=== PATIENT | male | born 1960 | race Caucasian/White ===

== ENCOUNTER 2018-09-03 06:06 | Day surgery (SDC) | payer OTHER ==
[2018-09-03] MEDS: CYCLOPENTOLATE 2% 2 ML OPH OPER (06:56)
[2018-09-03] MEDS: PHENYLephrine 10% 5 ML OPH OPER (06:56)
[2018-09-03] MEDS: MOXIFLOXACIN 0.5% 3 ML OPH OPER (06:56)
[2018-09-03] MEDS: LIDOCAINE 1% (MPF) 10 ML INJ (06:57)
[2018-09-03] MEDS ORDERED: TETRACAINE 0.5% 4 ML OPH (06:57)
[2018-09-03] MEDS ORDERED: BUPIVACAINE 0.75% (MPF) 10 ML INJ (06:57)
[2018-09-03] MEDS: NEPAFENAC 0.1% 3 ML OPH OPER (06:57)
[2018-09-03] MEDS ORDERED: MOXIFLOXACIN 0.5% 3 ML OPH (06:57)
[2018-09-03] MEDS ORDERED: NA BICARBONATE 8.4% 50 ML SYG (06:58)
[2018-09-03] MEDS ORDERED: EPINEPHrine 1 MG INJ (07:08)
[2018-09-03] MEDS ORDERED: PROPOFOL 20 ML (07:28)
[2018-09-03] MEDS ORDERED: LIDOCAINE 2% (SDV) 5 ML INJ (07:28)
[2018-09-03] MEDS ORDERED: DIPHENHYDRAMINE 50 MG INJ IV (07:30)
[2018-09-03] MEDS ORDERED: hydrALAzine 20 MG INJ IV (07:30)
[2018-09-03] MEDS ORDERED: LABETALOL HCL 20MG INJ IV (07:30)
[2018-09-03] MEDS ORDERED: OXYCODONE/ACETAMINOPHEN (5/325) TAB PO (07:30)
[2018-09-03] MEDS ORDERED: ACETAMINOPHEN 325 MG TAB PO (07:30)
[2018-09-03] MEDS ORDERED: FENTAnyl 50 MCG/ML VIAL IV (07:30)
[2018-09-03] MEDS ORDERED: ONDANSETRON 4 MG INJ IV (07:30)
[2018-09-03] MEDS ORDERED: ALBUTEROL 0.083% (NEB) 2.5 MG/3 ML AMP HHN (07:30)
[2018-09-03] MEDS ORDERED: ACETAMINOPHEN 500 MG TAB PO (07:30)
[2018-09-03] MEDS ORDERED: TIMOLOL 0.5% 5 ML OPH (07:47)
[2018-09-03] MEDS ORDERED: FENTAnyl 50 MCG/ML VIAL (08:01)
== END 2018-09-03 09:38 | disposition home or self-care (01) ==
LOC: SDS 06:06
DX: H25.12 Age-related nuclear cataract, left eye (principal); I10 Essential (primary) hypertension; E11.8 Type 2 diabetes mellitus with unspecified complications; Z79.4 Long term (current) use of insulin; E78.2 Mixed hyperlipidemia; M48.02 Spinal stenosis, cervical region
CPT/HCPCS: 66984; 82962